=== PATIENT | female | born 1995 | race Caucasian/White ===

== ENCOUNTER → 2024-04-04 08:26 | Outpatient (REF) | payer OTHER, SELFPAY | LOC: RAD 08:26 | PROVIDERS: ATTENDING PHYSICIAN Internal Medicine Gastroenterology; FAMILY PHYSICIAN Family Medicine | DX: K50.912 Crohn's disease, unspecified, with intestinal obstruction (principal) | CPT/HCPCS: 74019 ==

== ENCOUNTER 2024-06-06 12:58 | Emergency (ER) | payer OTHER, SELFPAY ==
[2024-06-06 13:02] VITALS: BP 124/81
--- NOTE | 2024-06-06 14:16 | ED.GENMED ---
History of Present Illness
<Brittany Cordero PA-C - Last Filed: 06/06/24 19:41>
General
Chief Complaint: Headache
Source: patient
Exam Limitations: none
Time Seen by Provider: 06/06/24 14:15
Nursing documentation reviewed up to this point in time: agreed with
History of Present Illness
History of Present Illness:
29-year-old female history of migraine disorder, endometriosis, Crohn's disease presents emergency department today with concerns of headache and near syncopal episode. Patient reports that upon wakening this morning, she noticed a left-sided
headache and pain behind the left eye. Patient reports that she does have migraine disorder and follows with Dr. Gardner and gets Botox injections every 6 months for them. She reports that she knows her headache get increasingly more severe as the
day went on and then, when standing up from a sitting position, she started to see stars and fell to the ground. She not hit her head when she fell. She has no neck pain currently. She has no fevers or chills. Patient also notes nausea but
denies any vomiting. Patient also notes pelvic pain that she states that she has chronically, however she feels like it is worse today. Patient states that she does have a follow-up appointment with her CERTIFIED WELDING INSPECTOR tomorrow.
Past History
<Brittany Cordero PA-C - Last Filed: 06/06/24 19:41>
Past History
ED Past Medical History: Other (Mitral valve prolapse, Crohns, endometriosis,)
ED Past Surgical History: Appendectomy and Bowel resection
Social History
Tobacco: Non-smoker
Alcohol: None
Drug: None
Personal: Single
Living: with family
Employment: Other
Family History
Family History: Other
Review of Systems
<Brittany Cordero PA-C - Last Filed: 06/06/24 19:41>
Review of Systems
All Other Systems: ROS reviewed and negative except as documented in HPI and ROS
Phy Exam
<Brittany Cordero PA-C - Last Filed: 06/06/24 19:41>
Physical Exam
Physical Exam:
General: Patient is well appearing and in no acute distress; non-toxic
Skin: Warm and dry, no rashes or lesions
Head: Normocephalic, atraumatic
Eyes: Sclera non-icteric. EOMs intact. No erythema or lacrimation from the left eye.
Cardiac: Regular rate and rhythm, no murmurs
Peripheral Vascular: No lower extremity swelling or edema
Pulm: Normal respiratory effort, no wheezes, rales, or rhonchi
Musculoskeletal: 5 out of 5 strength in bilateral upper and lower extremities.
Neuro: CN II-XII intact, no focal neurologic deficits. Finger-nose testing, [id number] testing intact
Psychiatric: Appropriate mood and affect.
Course
<Brittany Cordero PA-C - Last Filed: 06/06/24 19:41>
Orders/Labs/Results
Orders:
Orders
06/06/24 14:32
Diphenhydramine [Benadryl] 12.5 mg IV NOW STA
Ketorolac [Toradol] 15 mg IV NOW STA
Metoclopramide [Reglan] 10 mg IV NOW STA
06/06/24 14:33
CT Head W/o Iv Contrast Urgent
Comment:
Reason For Exam: severe left sided headed, syncope
06/06/24 14:34
Test Result ONCE
06/06/24 14:47
Complete Blood Count/With Diff Urgent
Comprehensive Metabolic Panel Urgent
HCG, Serum Qualitative Screen Urgent
06/06/24 16:56
Dexamethasone Sod Phosphate [Decadron] 4 mg IV NOW STA
Ketorolac [Toradol] 15 mg IV NOW STA
Abnormal Lab Results
06/06/24
14:47
Monocytes % 10.1 H %
(1.7-9.3)
Eosinophils % 6.3 H %
(0-6)
Carbon Dioxide 21 L mmol/L
(22-30)
Alkaline Phosphatase 36 L U/L
(38-126)
06/06/24 14:47
06/06/24 14:47
Vital Signs
Initial and Last Documented VS:
Initial Vital Signs
Temp Pulse Resp BP Pulse Ox
98.2 F 68 18 124/81 99
06/06/24 13:02 06/06/24 13:02 06/06/24 13:02 06/06/24 13:02 06/06/24 13:02
Last Documented Vital Signs
Temp Pulse Resp BP Pulse Ox
98.2 F 71 18 122/72 99
06/06/24 13:02 06/06/24 16:14 06/06/24 16:14 06/06/24 16:14 06/06/24 16:14
<Sara Barrios, - Last Filed: 06/06/24 15:10>
Orders/Labs/Results
Orders:
Orders
06/06/24 14:32
Diphenhydramine [Benadryl] 12.5 mg IV NOW STA
Ketorolac [Toradol] 15 mg IV NOW STA
Metoclopramide [Reglan] 10 mg IV NOW STA
06/06/24 14:33
CT Head W/o Iv Contrast Urgent
Comment:
Reason For Exam: severe left sided headed, syncope
06/06/24 14:34
Test Result ONCE
06/06/24 14:47
Complete Blood Count/With Diff Urgent
Comprehensive Metabolic Panel Urgent
HCG, Serum Qualitative Screen Urgent
06/06/24 16:56
Dexamethasone Sod Phosphate [Decadron] 4 mg IV NOW STA
Ketorolac [Toradol] 15 mg IV NOW STA
Abnormal Lab Results
06/06/24
14:47
Monocytes % 10.1 H %
(1.7-9.3)
Eosinophils % 6.3 H %
(0-6)
Carbon Dioxide 21 L mmol/L
(22-30)
Alkaline Phosphatase 36 L U/L
(38-126)
06/06/24 14:47
06/06/24 14:47
Vital Signs
Initial and Last Documented VS:
Initial Vital Signs
Temp Pulse Resp BP Pulse Ox
98.2 F 68 18 124/81 99
06/06/24 13:02 06/06/24 13:02 06/06/24 13:02 06/06/24 13:02 06/06/24 13:02
Last Documented Vital Signs
Temp Pulse Resp BP Pulse Ox
98.2 F 71 18 122/72 99
06/06/24 13:02 06/06/24 16:14 06/06/24 16:14 06/06/24 16:14 06/06/24 16:14
Aleshialt;Brittany Cordero PA-C - Last Filed: 06/06/24 19:41>
MDM/Problems Addressed
Differential Diagnosis Includes:
ddx include tension headache, migraine headache, viral syndrome
MDM/Problems Addressed:
29-year-old female history of migraine disorder, endometriosis, Crohn's disease presents emergency department today with concerns of headache and near syncopal episode. Patient reports that upon wakening this morning, she noticed a left-sided
headache and pain behind the left eye. She states that it kept increasing in severity and she never had a headache like this before. She also notes that she had a near syncopal episode. Considering this headache is much different character than
her typical migraines, CT scan was ordered which was negative. On exam, she has no focal logic deficits, and around her left eye, she has no erythema, no tearing, no lacrimation from the left nare. CBC and CMP unremarkable. I suspect patient
suffered another migraine headache today. In terms of patient's pelvic pain, she does not have a fever today, she has chronic urinary symptoms, her lab work is unremarkable, she does have a follow-up with urogynecology tomorrow as I do not feel any
additional test testing is necessary at this time. Discussed return precautions with patient. Patient stable for discharge.
Chronic conditions affecting care:
Endometriosis, migraine headache
<Brittany Cordero PA-C - Last Filed: 06/06/24 19:41>
*Pulse Oximetry
Patient hypoxic: no
*Critical Care Note
Total Time (30-74mins, 75-104mins- exclusive of procedures): Not Applicable
Data Reviewed
Review of Other/Old Records Reveals: Records (Reviewed discharge summary from 02/12/2021 the patient was seen for persistent abdominal pain and was admitted for hyperemesis gravidarum not was found to have a specific etiology of her right upper quad)
Source: patient and records
Prescriptions/Medications Considered But Not Given:
n/a
Further Testing Considered But Not Given:
n/a
<Brittany Cordero PA-C - Last Filed: 06/06/24 19:41>
Update Note
Update Note:
4:31 PM-- Patient notes that her headache has significantly improved from earlier and now she just has a dull ache
ED Attending Note
<Brittany Cordero PA-C - Last Filed: 06/06/24 19:41>
-
Portions of this chart may have been created with voice recognition software.� Occasional wrong word or��sound alike� substitutions may have occurred due to the inherent limitations of voice recognition software.
<Sara Barrios DO - Last Filed: 06/06/24 15:10>
ED Attending Note
Patient seen and examined by attending physician: Yes
I performed the substantive portion of visit, reviewed & personally made and approve the management plan that is documented in note by myself or NANCY.: Yes
I performed a history and physical exam of patient and discussed management with resident, I reviewed resident's note and agree with documented findings and plan of care.: Yes
ED Attending Note:
29-year-old female with history of migraines presenting to the emergency department for headache. Patient reports she woke up this morning with a left-sided headache. She notes that her headache feels more severe than usual, and headache is
usually bandlike in distribution. Prior to arrival, she also stood up, felt that she was going to pass out. Reports that she does follow with neurology for migraines, receives Botox injections. She did not take any medications prior to arrival.
Denies fever, neck pain, visual changes. Denies weakness or numbness to her extremities. Denies chest pain or difficulty breathing or additional acute medical complaints.
Vital signs on arrival are normal. On exam patient is well-appearing, no acute distress. She is afebrile, nontoxic. She is moving neck appropriately without any signs of meningismus. Unremarkable cardiac and pulmonary exam. No focal neurologic
deficits. Symptoms appear consistent with migraine. Lower suspicion for central neurologic process. Lower suspicion for systemic infectious process. Patient denies any trauma or injury, without concern for acute traumatic injury. Blood pressure
within normal limits without concern for pseudotumor cerebri. Will treat patient's migraine with migraine cocktail. Given that symptoms are more severe than typical, different distribution, will screen CT brain imaging.
Discharge Plan
Departure
Patient Disposition: Home (Routine Discharge)
Date of Disposition: 06/06/24
Time of Disposition: 17:15
Patient with high blood pressure during this ER visit?: No
Condition: Good
Discharge Problem:
Migraine headache
Instructions: Migraines (DC), Pelvic Pain (DC)
Prescriptions:
No Action
prednisone 20 MG tablet
20 mg PO DAILY Qty: 30 0RF
PNV,calcium 44-ulcf-hckxd acid [ Vitamin Plus Low Iron] 1 TABLET tablet
1 tab PO DAILY Qty: 30 0RF
certolizumab pegol [Cimzia] 200 MG/ML syringe kit
1 dose INJ UD
Patient Comments:
02/10/2021: Per pt, [id number], then goes to [id number]
ondansetron 4 MG tablet,disintegrating
4 mg PO Q8HPRN PRN (Reason: nausea/vomiting)
fluoxetine 10 MG capsule
20 mg PO DAILY
prednisone 20 MG tablet
20 mg PO DAILY Qty: 5 0RF
ibuprofen 600 MG tablet
600 mg PO Q4HPRN PRN (Reason: moderate pain/cramps) 0RF
Referrals:
Alli Briseno MD [Family Provider] -
Activity Restrictions/Additional Instructions:
Please return emergency department should you experience acute worsening of your symptoms, intractable vomiting, weakness in 1 extremity, inability to ambulate, numbness or tingling, dizziness, lightheadedness, or any other signs or symptoms
concerning to you.
Please follow-up with the urogynecologist tomorrow as scheduled for your pelvic pain.
Please follow-up with your primary care provider.
Interventions
Interventions:
*Risk Screen - Suicide Last Done: 06/06/24 13:04
*General Assessment Last Done: 06/06/24 13:04
*Neglect/Abuse Screening Last Done: 06/06/24 13:04
ED- Fall Risk Assessment Last Done: 06/06/24 14:18
*Nursing Disposition Last Done: 06/06/24 17:29
ED- Neurological Assessment Last Done: 06/06/24 14:18
Discharge Date and Time
Discharge Date/Time: 06/06/24 17:47
Print Language: BRITISH
[2024-06-06] MEDS: REGLAN 10 MG IV (14:45)
[2024-06-06] MEDS: BENADRYL 12.5 MG IV (14:45)
[2024-06-06] MEDS: TORADOL 15 MG IV ×2 (14:46→17:03)
[2024-06-06 14:59] VITALS: BP 128/74
[2024-06-06 15:07] LABS: % Basophils 0.8 % (0-2); % Eosinophils 6.3 % (0-6); % Immature Granulocytes 0.2 % (0-0.5); % Lymphocytes 31.8 % (20.5-51.1); % Monocytes 10.1 % (1.7-9.3); % Neutrophils 50.8 % (42.2-75.2); Absolute Basophils 0.1 10^3/uL (0-0.2); Absolute Eosinophils 0.4 10^3/uL (0-0.7); Absolute Monocytes 0.6 10^3/uL (0.1-0.6); Absolute Neutrophils 3.2 10^3/uL (1.4-6.5); Hematocrit 37.8 % (37.0-47.0); Mean Corp Hgb Conc. 34.4 g/dL (33.0-37.0); Mean Corpuscular Hgb 29.5 pg (27.0-31.0); Mean Corpuscular Volume 85.7 fL (81.0-99.0); Mean Platelet Volume 9.2 fL (7.4-10.4); Nucleated Red Blood Cells % 0 %; Platelet Count 324 10^3/uL (130-400); Red Blood Cell Count 4.41 10^6/uL (4.20-5.40); Red Cell Dist. Width 12.9 % (11.5-14.5); White Blood Cell Count 6.2 10^3/uL (4.8-10.8)
[2024-06-06 15:16] LABS: HCG, Serum Qualitative Screen Negative
[2024-06-06 15:21] LABS: ALT (SGPT) 23 U/L (0-35); AST (SGOT) 23 U/L (14-36); Albumin 4.6 g/dl (3.5-5.0); Alkaline Phosphatase 36 U/L (38-126); Blood Urea Nitrogen 9 mg/dl (7-17); Calcium 9.3 mg/dl (8.4-10.2); Carbon Dioxide 21 mmol/L (22-30); Chloride 105 mmol/L (98-107); Glucose 81 mg/dl (70-99); Potassium 3.9 mmol/L (3.5-5.1); Sodium 141 mmol/L (135-145); Total Bilirubin 0.8 mg/dl (0.2-1.3); Total Protein 7.3 g/dl (6.3-8.2); eGFR > 60.00
[2024-06-06 16:14] VITALS: BP 122/72
[2024-06-06] MEDS: DECADRON 4 MG IV (17:03)
== END 2024-06-06 17:47 | disposition home or self-care (01) ==
LOC: EMR 12:58
PROVIDERS: Physician Assistant; EMERGENCY PHYSICIAN Student in an Organized Health Care Education/Training Program; FAMILY PHYSICIAN Family Medicine
DX: R55 Syncope and collapse (principal); G43.909 Migraine, unspecified, not intractable, without status migrainosus; R10.2 Pelvic and perineal pain; W19.XXXA Unspecified fall, initial encounter; N80.9 Endometriosis, unspecified; K50.90 Crohn's disease, unspecified, without complications; I34.1 Nonrheumatic mitral (valve) prolapse; G89.29 Other chronic pain; Z87.891 Personal history of nicotine dependence; Z98.0 Intestinal bypass and anastomosis status; Z91.040 Latex allergy status
CPT/HCPCS: 99284; 96374; 96375 ×3; 96376; 70450; 80053; 84703; 85025

== ENCOUNTER 2024-09-16 05:06 | Emergency (ER) | payer OTHER, SELFPAY ==
[2024-09-16 05:09] VITALS: BP 118/76
[2024-09-16 05:46] LABS: % Basophils 0.7 % (0-2); % Eosinophils 4.8 % (0-6); % Immature Granulocytes 0.2 % (0-0.5); % Lymphocytes 37.3 % (20.5-51.1); % Monocytes 8.2 % (1.7-9.3); % Neutrophils 48.8 % (42.2-75.2); Absolute Eosinophils 0.3 10^3/uL (0-0.7); Absolute Lymphocytes 2.1 10^3/uL (1.2-3.4); Absolute Monocytes 0.5 10^3/uL (0.1-0.6); Absolute Neutrophils 2.8 10^3/uL (1.4-6.5); Hematocrit 36.7 % (37.0-47.0); Hemoglobin 12.7 g/dL (12.0-16.0); Mean Corp Hgb Conc. 34.6 g/dL (33.0-37.0); Mean Corpuscular Hgb 30.8 pg (27.0-31.0); Mean Corpuscular Volume 89.1 fL (81.0-99.0); Mean Platelet Volume 9.3 fL (7.4-10.4); Nucleated Red Blood Cells % 0 %; Platelet Count 282 10^3/uL (130-400); Red Blood Cell Count 4.12 10^6/uL (4.20-5.40); Red Cell Dist. Width 12.5 % (11.5-14.5); White Blood Cell Count 5.6 10^3/uL (4.8-10.8)
[2024-09-16 06:01] LABS: ALT (SGPT) 20 U/L (0-35); AST (SGOT) 20 U/L (14-36); Albumin 4.5 g/dl (3.5-5.0); Alkaline Phosphatase 50 U/L (38-126); Blood Urea Nitrogen 12 mg/dl (7-17); Calcium 9.1 mg/dl (8.4-10.2); Carbon Dioxide 23 mmol/L (22-30); Chloride 103 mmol/L (98-107); Glucose 101 mg/dl (70-99); Sodium 138 mmol/L (135-145); Total Bilirubin 0.3 mg/dl (0.2-1.3); Total Protein 7.2 g/dl (6.3-8.2); eGFR > 60.00
[2024-09-16 06:16] VITALS: BMI 20.5
[2024-09-16 06:20] VITALS: BP 107/65
[2024-09-16 07:06] LABS: HCG, Serum Qualitative Screen Negative
--- NOTE | 2024-09-16 07:30 | ED.GENMED ---
History of Present Illness
General
Chief Complaint: Abdominal Pain
Time Seen by Provider: 09/16/24 07:09
History of Present Illness
History of Present Illness:
29-year-old female with history of Crohn's presents to the emergency department for evaluation of lower abdominal pain over the past 24 hours. She describes the pain as severe cramping with occasional 'twisting'. She has chronic diarrhea secondary
to Crohn's does not report any significant change to the volume of bowel movements. No hematochezia. Positive nausea no vomiting. No fevers or chills. Also reports brown vaginal discharge for the past 3 days. No dysuria or hematuria. No
concern for STI. Prior abdominal surgery includes partial colectomy, appendectomy, laparoscopy for endometriosis
Past History
Past History
ED Past Medical History: Other (Mitral valve prolapse, Crohns, endometriosis,)
ED Past Surgical History: Appendectomy and Bowel resection
Social History
Tobacco: Non-smoker
Alcohol: None
Drug: None
Personal: Single
Living: with family
Employment: Other
Family History
Family History: Other
Review of Systems
Review of Systems
Allergies reviewed?: Yes
All Other Systems: ROS reviewed and negative except as documented in HPI and ROS
Phy Exam
Physical Exam
Physical Exam:
GEN: Tearful, appears to be in pain, no immediate distress
HEENT: Oral mucosa moist, no scleral icterus
Cardiac: Regular rate
Lung: No respiratory distress, no tachypnea
Abdomen: Soft, nonrigid, diffuse tenderness particularly below the umbilicus
MSK: No gross deformity or injuries
Skin: Good color, no pallor or jaundice, no rashes
Neuro: AO x3, moves all extremities freely
Psych: Calm, cooperative
Course
Orders/Labs/Results
Orders:
Orders
09/16/24 05:12
Test Result ONCE
09/16/24 05:19
C-Reactive Protein Urgent
Comment: ADD ON
Complete Blood Count/With Diff Urgent
Comprehensive Metabolic Panel Urgent
Erythrocyte Sed Rate Urgent
Comment: ADD ON
HCG, Serum Qualitative Screen Urgent
09/16/24 07:23
Add On- LAB Urgent
Tests Added?: CRP, ESR
09/16/24 07:30
CT Abd/Pel (IV only)-DH only Urgent
Comment:
Reason For Exam: lower abd pain, hx of Crohn's
09/16/24 07:32
HYDROmorphone [Dilaudid] 0.5 mg IV NOW STA
Ondansetron Injectable [Zofran] 4 mg IV NOW STA
09/16/24 09:11
Urinalysis Reflex To Culture Urgent
Date Specimen was Collected: 09/16/24
Time Specimen was Collected: 09:09
Abnormal Lab Results
09/16/24
05:19
RBC 4.12 L 10^6/uL
(4.20-5.40)
Hct 36.7 L %
(37.0-47.0)
Glucose 101 H mg/dl
(70-99)
09/16/24 05:19
09/16/24 05:19
Vital Signs
Initial and Last Documented VS:
Initial Vital Signs
Temp Pulse Resp BP Pulse Ox
98.9 F 82 18 118/76 100
09/16/24 05:09 09/16/24 05:09 09/16/24 05:09 09/16/24 05:09 09/16/24 05:09
Last Documented Vital Signs
Temp Pulse Resp BP Pulse Ox
98.9 F 89 18 113/65 100
09/16/24 05:09 09/16/24 07:48 09/16/24 07:48 09/16/24 07:48 09/16/24 06:16
MDM/Problems Addressed
MDM/Problems Addressed:
Imaging is unremarkable for acute abdominal process, with negative inflammatory markers this is reassuring against acute Crohn's flareup. Urinalysis bland. May be pain related to prior surgical incision/adhesions versus endometriosis. Recommend
outpatient PCP or [facility] follow-up
*Critical Care Note
Total Time (30-74mins, 75-104mins- exclusive of procedures): Not Applicable
ED Attending Note
-
Portions of this chart may have been created with voice recognition software.� Occasional wrong word or��sound alike� substitutions may have occurred due to the inherent limitations of voice recognition software.
Discharge Plan
Departure
Patient Disposition: Home (Routine Discharge)
Date of Disposition: 09/16/24
Time of Disposition: 09:08
Patient with high blood pressure during this ER visit?: No
Discharge Problem:
Bilateral lower abdominal pain
Instructions: Abdominal Pain
Prescriptions:
New
oxycodone-acetaminophen [Percocet] 5-325 mg tablet
1 tab PO Q6HPRN PRN (Reason: pain) Qty: 8 0RF
No Action
prednisone 20 MG tablet
20 mg PO DAILY Qty: 30 0RF
PNV,calcium 66-aihs-nfjfx acid [ Vitamin Plus Low Iron] 1 TABLET tablet
1 tab PO DAILY Qty: 30 0RF
certolizumab pegol [Cimzia] 200 MG/ML syringe kit
1 dose INJ UD
Patient Comments:
02/10/2021: Per pt, [id number], then goes to [id number]
ondansetron 4 MG tablet,disintegrating
4 mg PO Q8HPRN PRN (Reason: nausea/vomiting)
fluoxetine 10 MG capsule
20 mg PO DAILY
prednisone 20 MG tablet
20 mg PO DAILY Qty: 5 0RF
ibuprofen 600 MG tablet
600 mg PO Q4HPRN PRN (Reason: moderate pain/cramps) 0RF
Referrals:
Alli Briseno MD [Family Provider] -
Stand Alone Forms: Return to Work
Interventions
Interventions:
*Risk Screen - Suicide Last Done: 09/16/24 05:09
*General Assessment Last Done: 09/16/24 06:16
*Neglect/Abuse Screening Last Done: 09/16/24 05:09
ED- Fall Risk Assessment Last Done: 09/16/24 06:20
*ED COVID-19 Vaccine History Last Done: 09/16/24 06:16
*Nursing Disposition Last Done: 09/16/24 09:32
LD-Ymfdca-Iymakugicb Assessment Last Done: 09/16/24 06:20
Discharge Date and Time
Discharge Date/Time: 09/16/24 09:34
Print Language: HAITIAN
[2024-09-16] MEDS: ZOFRAN 4 MG IV (07:39)
[2024-09-16] MEDS: DILAUDID 0.5 MG IV (07:39)
[2024-09-16 07:48] VITALS: BP 113/65
[2024-09-16 08:04] LABS: C-Reactive Protein < 5.00 mg/L (0.0-10.00)
[2024-09-16 09:07] LABS: Erythrocyte Sed Rate 6 mm/hour (0-20)
[2024-09-16 09:28] LABS: Urine Albumin Negative (Neg - Trace); Urine Bilirubin Negative (Negative); Urine Character Clear (Clear); Urine Color Yellow; Urine Glucose Negative (Negative); Urine Ketone Negative (Negative); Urine Leukocyte Negative (Negative); Urine Nitrite Negative (Negative); Urine Occult Blood Negative (Negative); Urine Urobilinogen Negative (Neg - 1+)
== END 2024-09-16 09:34 | disposition home or self-care (01) ==
LOC: EMR 05:06
PROVIDERS: Physician Assistant; Student in an Organized Health Care Education/Training Program; EMERGENCY PHYSICIAN Emergency Medicine; FAMILY PHYSICIAN Family Medicine
DX: R10.30 Lower abdominal pain, unspecified (principal)
CPT/HCPCS: 99285; 96374; 96375; 74177; 80053; 81003; 84703; 85025; 85652; 86140; Q9967

== ENCOUNTER → 2024-11-20 11:58 | Outpatient (REF) | payer OTHER, SELFPAY | LOC: MRI 3T 11:58 | PROVIDERS: ATTENDING PHYSICIAN Obstetrics & Gynecology; FAMILY PHYSICIAN Family Medicine | DX: R10.2 Pelvic and perineal pain (principal); N80.9 Endometriosis, unspecified | CPT/HCPCS: 72197; A9575 ==

== ENCOUNTER 2025-02-26 06:26 | Day surgery (SDC) | payer OTHER, SELFPAY | END 2025-02-26 10:51 | disposition home or self-care (01) | LOC: GI 06:26 | PROVIDERS: ATTENDING PHYSICIAN Surgery; FAMILY PHYSICIAN Family Medicine | DX: Z01.818 Encounter for other preprocedural examination (principal); K62.5 Hemorrhage of anus and rectum; K64.8 Other hemorrhoids; K63.9 Disease of intestine, unspecified | CPT/HCPCS: 45331; 88305 ==

== ENCOUNTER 2025-03-19 05:44 | Day surgery (SDC) | payer OTHER, SELFPAY ==
[2025-03-11 09:02] LABS: Hematocrit 37.9 % (37.0-47.0); Hemoglobin 12.8 g/dL (12.0-16.0); Mean Corp Hgb Conc. 33.8 g/dL (33.0-37.0); Mean Corpuscular Volume 90.9 fL (81.0-99.0); Platelet Count 262 10^3/uL (130-400); Red Cell Dist. Width 13.4 % (11.5-14.5)
[2025-03-11 09:57] LABS: Blood Urea Nitrogen 14 mg/dl (7-17); Calcium 9.1 mg/dl (8.4-10.2); Carbon Dioxide 21 mmol/L (22-30); Chloride 112 mmol/L (98-107); Glucose 81 mg/dl (70-99); Potassium 4.2 mmol/L (3.5-5.1); Sodium 140 mmol/L (135-145); eGFR > 60.00
[2025-03-11 13:52] VITALS: BMI 20.4
[2025-03-19] VITALS (15 sets, daily range): BP systolic 80–128; BP diastolic 41–93; BMI 20.4
[2025-03-19] MEDS: NORMOSOL-R/PLASMALYTE-A 1000 IV (06:28)
[2025-03-19] MEDS: ZOFRAN 4 MG IV (09:20)
[2025-03-19] MEDS: SUBLIMAZE 25 MCG IV ×2 (09:23→09:43)
[2025-03-19] MEDS: SUBLIMAZE 50 MCG IV (09:34)
[2025-03-19] MEDS: DILAUDID 0.25 MG IV (10:01)
[2025-03-19] MEDS: COMPAZINE 5 MG IV (10:28)
[2025-03-19] MEDS: TORADOL 15 MG IV (10:43)
[2025-03-19] MEDS: ROXICODONE 5 MG PO (12:22)
[2025-03-19] MEDS: TYLENOL 650 MG PO (14:26)
== END 2025-03-19 14:43 | disposition home or self-care (01) ==
LOC: SDS 05:44
PROVIDERS: ATTENDING PHYSICIAN Obstetrics & Gynecology; FAMILY PHYSICIAN Family Medicine; OTHER PHYSICIAN Surgery
DX: N80.329 Endometriosis of the posterior cul-de-sac, unspecified depth (principal); N80.103 Endometriosis of bilateral ovaries, unspecified depth; N80.353 Endometriosis of bilateral pelvic sidewall, unspecified depth; N80.A0 Endometriosis of bladder, unspecified depth; N80.A63 Endometriosis of bilateral ureters, unspecified depth; N83.02 Follicular cyst of left ovary; R10.2 Pelvic and perineal pain; G89.29 Other chronic pain; K50.90 Crohn's disease, unspecified, without complications; K66.0 Peritoneal adhesions (postprocedural) (postinfection); Z90.49 Acquired absence of other specified parts of digestive tract
CPT/HCPCS: 58571; 58662; 36415; 80048; 85027; 86850; 86900; 86901; 88305; 88307; 93005

== ENCOUNTER 2025-03-22 19:37 | Emergency (ER) | payer OTHER, SELFPAY ==
[2025-03-22 19:43] VITALS: BP 131/80
[2025-03-22 20:11] LABS: Hematocrit 35.3 % (37.0-47.0); Hemoglobin 12.0 g/dL (12.0-16.0); Mean Corp Hgb Conc. 34.0 g/dL (33.0-37.0); Mean Corpuscular Volume 89.4 fL (81.0-99.0); Nucleated Red Blood Cells % 0 %; Platelet Count 246 10^3/uL (130-400); Red Cell Dist. Width 13.2 % (11.5-14.5)
[2025-03-22 20:24] LABS: ALT (SGPT) 13 U/L (0-35); AST (SGOT) 19 U/L (14-36); Albumin 4.4 g/dl (3.5-5.0); Alkaline Phosphatase 28 U/L (38-126); Blood Urea Nitrogen 12 mg/dl (7-17); Calcium 9.1 mg/dl (8.4-10.2); Carbon Dioxide 24 mmol/L (22-30); Chloride 106 mmol/L (98-107); Glucose 94 mg/dl (70-99); Potassium 4.0 mmol/L (3.5-5.1); Sodium 137 mmol/L (135-145); Total Protein 6.9 g/dl (6.3-8.2); eGFR > 60.00
--- NOTE | 2025-03-22 22:34 | ED.GENMED ---
History of Present Illness
<German Bain, DO - Last Filed: 03/22/25 22:35>
General
Chief Complaint: Skin Problem
Time Seen by Provider: 03/22/25 22:15
<Will Leone MD, Resident - Last Filed: 03/22/25 23:11>
General
Source: patient
Exam Limitations: none
Nursing documentation reviewed up to this point in time: agreed with
History of Present Illness
History of Present Illness:
This is a 29-year-old female s/p Robotic assisted total laparoscopic hysterectomy and bilateral salpingectomy on 03/19/2025. She is presenting today with complaints of abdominal rash which started yesterday around 4 PM. She reported that there was
some discomfort in the epigastric area and when she looked at it there was small vesicles which eventually spread to the whole abdomen into her upper thighs. 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
supportive measures were advised. She reports that the rash is itchy and discomfort is bothering her which prompted her to visit the emergency department. She informed me that she usually takes Adderall for ADHD which is on hold because of the
surgery which is also aggravating her mental health.
Past History
<Will Leone MD, Resident - Last Filed: 03/22/25 23:11>
Past History
ED Past Medical History: Psychiatric (Anxiety/depression) and Other (Mitral valve prolapse, Crohns, endometriosis, migraines, endometriosis, history of iron deficiency anemia,)
ED Past Surgical History: Appendectomy, Bowel resection and Gynecological
Social History
Tobacco: Non-smoker
Alcohol: None
Drug: None
Personal: Single
Living: with family
Employment: Other
Family History
Family History: Other
Review of Systems
<Will Leone MD, Resident - Last Filed: 03/22/25 23:11>
Review of Systems
Constitutional: Denies fever or chills
Respiratory: Denies cough
Cardiac: Denies chest pain
ABD/GI: Denies abdominal pain
: Denies dysuria
Musculoskeletal: Denies joint pain
Neurological: Denies dizzy or headache
Endocrine: Denies polyuria
Hematologic/Lymphatic: Denies bleeding
Psychiatric: Denies depression
Phy Exam
<Will Leone MD, Resident - Last Filed: 03/22/25 23:11>
General Physical Exam
General Presentation: well appearing
General age: appears stated age
General Mental: alert
General Hydration: appears well hydrated
Cardiovascular Exam
Cardiovascular Exam: regular rate/rhythm and no murmur
Pulmonary Exam
Pulmonary Exam: lungs clear and no crackles
Gastrointestinal Exam
Gastrointestinal Exam: non tender, soft, non distended and surgical scar (Clean dry and intact)
Skin Exam
Skin Exam: other (Erythematous multiple vesicle on the abdomen and upper outer thighs)
Course
<German Bain, DO - Last Filed: 03/22/25 22:35>
Orders/Labs/Results
Orders:
Orders
03/22/25 19:57
Complete Blood Count/With Diff Urgent
Comprehensive Metabolic Panel Urgent
03/22/25 22:34
Diphenhydramine [Benadryl] 25 mg PO NOW STA
03/22/25 22:51
Hydrocortisone [Hydrocortisone 2.5% Cream] See Dose Instructions TOPICAL NOW STA
03/22/25 23:00
Ibuprofen [Motrin] 600 mg PO NOW STA
Abnormal Lab Results
03/22/25
19:57
RBC 3.95 L 10^6/uL
(4.20-5.40)
Hct 35.3 L %
(37.0-47.0)
Eosinophils % 6.3 H %
(0-6)
Alkaline Phosphatase 28 L U/L
(38-126)
03/22/25 19:57
03/22/25 19:57
Vital Signs
Initial and Last Documented VS:
Initial Vital Signs
Temp Pulse Resp BP Pulse Ox
98.4 F 100 20 131/80 99
03/22/25 19:43 03/22/25 19:43 03/22/25 19:43 03/22/25 19:43 03/22/25 19:43
Last Documented Vital Signs
Temp Pulse Resp BP Pulse Ox
98.4 F 100 20 131/80 99
03/22/25 19:43 03/22/25 19:43 03/22/25 19:43 03/22/25 19:43 03/22/25 22:35
<Will Leone MD, Resident - Last Filed: 03/22/25 23:11>
Orders/Labs/Results
Orders:
Orders
03/22/25 19:57
Complete Blood Count/With Diff Urgent
Comprehensive Metabolic Panel Urgent
03/22/25 22:34
Diphenhydramine [Benadryl] 25 mg PO NOW STA
03/22/25 22:51
Hydrocortisone [Hydrocortisone 2.5% Cream] See Dose Instructions TOPICAL NOW STA
03/22/25 23:00
Ibuprofen [Motrin] 600 mg PO NOW STA
Abnormal Lab Results
03/22/25
19:57
RBC 3.95 L 10^6/uL
(4.20-5.40)
Hct 35.3 L %
(37.0-47.0)
Eosinophils % 6.3 H %
(0-6)
Alkaline Phosphatase 28 L U/L
(38-126)
03/22/25 19:57
03/22/25 19:57
Vital Signs
Initial and Last Documented VS:
Initial Vital Signs
Temp Pulse Resp BP Pulse Ox
98.4 F 100 20 131/80 99
03/22/25 19:43 03/22/25 19:43 03/22/25 19:43 03/22/25 19:43 03/22/25 19:43
Last Documented Vital Signs
Temp Pulse Resp BP Pulse Ox
98.4 F 100 20 131/80 99
03/22/25 19:43 03/22/25 19:43 03/22/25 19:43 03/22/25 19:43 03/22/25 22:35
<Will Leone MD, Resident - Last Filed: 03/22/25 23:11>
MDM/Problems Addressed
Differential Diagnosis Includes:
Contact dermatitis vs viral exanthem vs others
MDM/Problems Addressed:
CBC and CMP unremarkable.
1 dose of Benadryl 25 mg
Hydrocortisone 2.5% cream topical
1 dose of Motrin 70 mg in the ER
Shared decision was made with the patient for discharge home. Return precautions reviewed. Advised to follow-up with outpatient family doctor if the rash does not resolve in couple of days. Prescription for hydrocortisone 2.5% cream was also sent
to the pharmacy. Medrol Dosepak prescription sent to the pharmacy patient advised on instructions on how to use. Patient agreed with the plan and voices understanding
<Will Leone MD, Resident - Last Filed: 03/22/25 23:11>
*Pulse Oximetry
SaO2: 99
Oxygen Mode of Delivery: Room air
Patient hypoxic: no
*Critical Care Note
Total Time (30-74mins, 75-104mins- exclusive of procedures): Not Applicable
ED Attending Note
<German Bain DO - Last Filed: 03/22/25 22:35>
ED Attending Note
Patient seen and examined by attending physician: Yes
I performed a history and physical exam of patient and discussed management with resident, I reviewed resident's note and agree with documented findings and plan of care.: Yes
ED Attending Note:
Seen with resident agree with assessment and plan superficial dermatitis she is allergic to latex does not look like cellulitis, will try low to medium potency steroid with some Benadryl
<Will Leone MD, Resident - Last Filed: 03/22/25 23:11>
-
Portions of this chart may have been created with voice recognition software.� Occasional wrong word or��sound alike� substitutions may have occurred due to the inherent limitations of voice recognition software.
Discharge Plan
Departure
Patient Disposition: Home (Routine Discharge)
Date of Disposition: 03/22/25
Time of Disposition: 23:10
Patient with high blood pressure during this ER visit?: No
Condition: Good
Discharge Problem:
Rash
Instructions: Skin Rash (DC)
Prescriptions:
New
methylprednisolone [Medrol (Genaro)] 4 mg tablets,dose pack
See Rx Instructions .ROUTE .COMPLEX Qty: 21 0RF
Rx Instructions:
for 6 days
hydrocortisone 2.5 % cream
1 applic topical BID PRN (Reason: rash) Qty: 30 0RF
No Action
dextroamphetamine-amphetamine [Adderall] 30 mg Tablet
30 mg PO BID PRN (Reason: ADHD)
medroxyprogesterone [Depo-Provera] 150 mg/mL Suspension
150 mg IM .[id number]
ustekinumab [Stelara] 45 mg/0.5 mL solution
90 mg SC Q6W
Botox
1 dose SC [id number]
alprazolam [Xanax] 0.5 mg Tablet
0.5 mg PO DAILY PRN (Reason: Anxiety)
melatonin 5 mg Tablet
5 mg PO HS PRN (Reason: Insomnia)
Referrals:
Alli Briseno MD [[facility]] - Follow up in 1 week
Interventions
Interventions:
*Risk Screen - Suicide Last Done: 03/22/25 19:43
*General Assessment Last Done: 03/22/25 19:43
Discharge Date and Time
Print Language: MONGOLIAN
[2025-03-22] MEDS: BENADRYL 25 MG PO (22:55)
[2025-03-22] MEDS: MOTRIN 600 MG PO (23:22)
[2025-03-22] MEDS: HYDROCORTISONE 2.5% CREAM 1 APPLIC TOPICAL (23:23)
== END 2025-03-22 23:30 | disposition home or self-care (01) ==
LOC: EMR 19:37
PROVIDERS: Emergency Medicine; EMERGENCY PHYSICIAN Emergency Medicine; FAMILY PHYSICIAN Chiropractor
DX: L30.9 Dermatitis, unspecified (principal); I34.1 Nonrheumatic mitral (valve) prolapse; Z91.040 Latex allergy status; Z90.49 Acquired absence of other specified parts of digestive tract; Z90.710 Acquired absence of both cervix and uterus
CPT/HCPCS: 99283; 80053; 85025

== ENCOUNTER 2025-06-25 06:19 | Day surgery (SDC) | payer OTHER, SELFPAY | END 2025-06-25 14:36 | disposition home or self-care (01) | LOC: GI 06:19 | PROVIDERS: ATTENDING PHYSICIAN Internal Medicine Gastroenterology | DX: K50.00 Crohn's disease of small intestine without complications (principal); K64.8 Other hemorrhoids; Z98.0 Intestinal bypass and anastomosis status | CPT/HCPCS: 45380; 88305 ==

== ENCOUNTER → 2025-08-23 08:08 | Outpatient (REF) | payer OTHER, SELFPAY | LOC: HWRAD 08:08 | PROVIDERS: ATTENDING PHYSICIAN Family Medicine | DX: E04.9 Nontoxic goiter, unspecified (principal) | CPT/HCPCS: 76536 ==